=== PATIENT | female | born 1935 | race Caucasian/White ===

== ENCOUNTER 2017-04-26 14:13 | Emergency (ER) | payer MEDICARE, OTHER ==
[~2017-04-26] VITALS: Ht 160 cm; Wt 58.1 kg
[~2017-04-26 14:13] MED LIST: CIPR250T PO; GABA300S PO; LISI-334 PO; METF10002 PO; PRIM50TA PO; SIMV40TA3 PO
[2017-04-26 14:20] VITALS: BP 169/87
--- NOTE | 2017-04-26 15:01 | RAD ---
EXAM: Head and maxillofacial bone CT without contrast. HISTORY: Fall. TECHNIQUE: Computed tomographic images of the head and maxillofacial bones were obtained without contrast. Multiplanar reformatting was performed for further evaluation. COMPARISON: 10/30/2014 FINDINGS: Head: There is no acute or subacute intracranial hemorrhage. There is increased density within the left temporal extra-axial space due to bone artifact. There is a large left frontal and temporal scalp hematoma. There are scattered areas of hypodensity within the cerebral white matter, likely due to chronic small vessel disease. There is cerebral volume loss. No calvarial lesion is seen. There are findings consistent with bilateral mastoidectomies. Maxillofacial bones: There is a large left frontal and temporal scalp hematoma. No underlying fracture is seen. No orbital lesion is seen. There is moderate left posterior ethmoid sinus mucosal thickening. 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 There is rightward nasal septal deviation. The ostiomeatal units are patent. IMPRESSION: 1. Large left frontal and temporal scalp hematoma. There is no acute intracranial finding or evidence of acute maxillofacial bone trauma. 2. Decreased attenuation within the cerebral white matter, likely due to chronic small vessel disease. 3. Cerebral volume loss. 4. Posterior left ethmoid sinus disease. PQRS Compliance Statement: One or more of the following individualized dose reduction techniques were utilized for this examination: 1. Automated exposure control 2. Adjustment of the mA and/or kV according to patient size 3. Use of iterative reconstruction technique exam
--- NOTE | 2017-04-26 15:08 | RAD ---
EXAM: Left elbow, 3 views. HISTORY: Pain. COMPARISON: None. FINDINGS: Frontal, lateral and oblique views of the left elbow were obtained. There is no fracture, dislocation or subluxation. No effusion is seen. IMPRESSION: No acute osseous finding.
--- NOTE | 2017-04-26 15:11 | PHYS DOC ---
General Chief Complaint: HEAD INJURY/TRAUMA Stated Complaint: [facility] FALL Time Seen by MD: 14:40 Source: patient, family Exam Limitations: no limitations Problems: History of Present Illness Initial Comments Pt is 81/F to ED via EMS for fall injury. Pt/family report that pt gait has been increasingly unsteady past few months, uses a walker at home. Immediately prior to arrival pt returned home from grocery shopping with family. While getting out of car she says she caught her foot on a curb and fell hitting left parietal and left elbow/hip on concrete. No LOC, pt was confused for approximately 15 minutes after the fall according to family and was having difficulty finding words so EMS called. Pt mentation cleared on ED arrival, she c/o headache and mild photophobia no n/v no new focal weakness. Full ROM at left elbow, has a few skin avulsions Td status unknown. No anticoagulation, no arrhythmia/syncope symptoms prior to fall, reported as mechanical. Occurred: just prior to arrival Severity: moderate Injuries/Pain Location: face, upper extremity, pelvis Context: tripped Loss of Consciousness: no loss of consciousness Modifying Factors: worse with jarring, worse with movement, improves with rest Associated Symptoms: headache, other Allergies: Coded Allergies: No Known Drug Allergies (Unverified , 06/04/14) Past Medical History Medical History: other (DM, UTI, colon cancer, HTN, HLP) Surgical History: noncontributory Social History Smoker: non-smoker Alcohol: none Drugs: none Review of Systems Constitutional: denies chills, denies fever, malaise Eyes: denies blindness, denies blurred vision, denies drainage, denies foreign body sensation, photophobia Ears, Nose, Mouth, Throat: denies ear discharge, denies nose discharge, denies epistaxis, denies mouth pain, denies throat pain Respiratory: denies cough, denies shortness of breath, denies wheezing Cardiovascular: denies chest pain, denies palpitations, denies syncope Gastrointestinal: denies abdominal pain, denies diarrhea, denies nausea, denies vomiting Genitourinary: denies dysuria, denies frequency, denies hematuria Musculoskeletal: see HPI Skin: see HPI Psychiatric/Neurological: see HPI, denies numbness, denies paresthesia, denies seizure, denies tingling Physical Exam General Appearance: no apparent distress, thin Head: other (Moderate left parietal hematoma noted with superficial abrasion, neg Tate/raccoon eyes no palpable scalp/face bony deformity) Eyes: bilateral eye normal inspection, bilateral eye PERRL, bilateral eye EOMI Ears, Nose, Mouth, Throat: hearing grossly normal, no evidence of ENT injury, no dental injury Neck: non-tender, full range of motion Cardiovascular/Respiratory: normal peripheral pulses, no respiratory distress Gastrointestinal: non tender, soft Back: no CVA tenderness, no vertebral tenderness Extremities: non-tender (diffuse left elbow TTP no deformity, ligs/tendons intact LUE neurovasc intact. 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 PHYSICIAN: ROSA RIVER DO REASON: fall, head injury PROCEDURE: CT HEAD WO CONTRAST; CT MAXILLOFACIAL WO CONTRAST EXAM: Head and maxillofacial bone CT without contrast. HISTORY: Fall. TECHNIQUE: Computed tomographic images of the head and maxillofacial bones were obtained without contrast. Multiplanar reformatting was performed for further evaluation. COMPARISON: 10/30/2014 FINDINGS: Head: There is no acute or subacute intracranial hemorrhage. There is increased density within the left temporal extra-axial space due to bone artifact. There is a large left frontal and temporal scalp hematoma. There are scattered areas of hypodensity within the cerebral white matter, likely due to chronic small vessel disease. There is cerebral volume loss. No calvarial lesion is seen. There are findings consistent with bilateral mastoidectomies. Maxillofacial bones: There is a large left frontal and temporal scalp hematoma. No underlying fracture is seen. No orbital lesion is seen. There is moderate left posterior ethmoid sinus mucosal thickening. 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 There is rightward nasal septal deviation. The ostiomeatal units are patent. IMPRESSION: 1. Large left frontal and temporal scalp hematoma. There is no acute intracranial finding or evidence of acute maxillofacial bone trauma. 2. Decreased attenuation within the cerebral white matter, likely due to chronic small vessel disease. 3. Cerebral volume loss. 4. Posterior left ethmoid sinus disease. PQRS Compliance Statement: One or more of the following individualized dose reduction techniques were utilized for this examination: 1. Automated exposure control 2. Adjustment of the mA and/or kV according to patient size 3. Use of iterative reconstruction technique exam DICTATED AND SIGNED BY: GUIDO QUEEN MD DATE: 04/26/17 1454 CC: ANA MCKENZIE; ROSA RIVER DO ~ PATIENT: NESTOR AMBROCIO ACCOUNT: [id number] : 1935 LOCATION: ER AGE: 81 SEX: F EXAM STATUS: REG ER ORD. PHYSICIAN: ROSA RIVER DO REASON: fall PROCEDURE: ELBOW LEFT 3V EXAM: Left elbow, 3 views. HISTORY: Pain. COMPARISON: None. FINDINGS: Frontal, lateral and oblique views of the left elbow were obtained. There is no fracture, dislocation or subluxation. No effusion is seen. IMPRESSION: No acute osseous finding. DICTATED AND SIGNED BY: GUIDO QUEEN MD DATE: 04/26/17 1506 CC: ANA MCKENZIE; ROSA RIVER DO ~ L Hip/Pelvis: reviewed by me, no acute osseous abnormality Pt ambulatory to bathroom, no new/progressive symptoms thru ED course. Departure Disposition: 01 HOME, SELF-CARE Diagnosis: mechanical fall, concussion, skin avulsion, Condition: STABLE Patient Instructions: Concussion and Brain Injury, [id number], Deep Skin Avulsion, Fall Prevention and Home Safety, [id number] Additional Instructions: Have someone stay with you over the weekend to assist you with walking. Ice to painful areas 15 minutes 4-6 times daily. OTC tylenol for discomfort. Keep left arm wounds covered with sterile dressing until healed. Wash wound twice daily, apply bactroban, and change dressing twice daily. Allow wound to air dry one hour daily. Follow up with your doctor Thursday for recheck. Return to ED with new or changing symptoms. ROSA RIVER DO April 26, 2017 15:11
[2017-04-26] MEDS ORDERED: DIPHTH,PERTUSS(ACELL),TET TOX 0.5 ML DISP.SYRIN. VAX IM ONE (15:45)
--- NOTE | 2017-04-26 16:06 | RAD ---
EXAM: Pelvis and left hip, 3 views. HISTORY: Fall. COMPARISON: None. FINDINGS: A frontal view of the pelvis and frontal and frog-leg views of the left hip are obtained. There is no fracture, dislocation or subluxation. There is endplate remodeling at the lumbosacral junction. There are vascular calcifications. IMPRESSION: No acute osseous finding.
[2017-04-26] MEDS ORDERED: MUPI15CR TP (16:23)
== END 2017-04-26 17:20 | disposition home or self-care (01) ==
LOC: ER 14:59
DX: S06.0X0A Concussion without loss of consciousness, initial encounter (principal); S61.402A Unspecified open wound of left hand, initial encounter; I10 Essential (primary) hypertension; E11.9 Type 2 diabetes mellitus without complications; E78.5 Hyperlipidemia, unspecified; Z87.440 Personal history of urinary (tract) infections; W18.09XA Striking against other object with subsequent fall, initial encounter; Y93.89 Activity, other specified; Y99.8 Other external cause status; Y92.098 Other place in other non-institutional residence as the place of occurrence of the external cause
CPT/HCPCS: 70450; 70486; 73080; 73502; 90471; 90715; 99284-25

== ENCOUNTER 2018-12-24 17:12 | Inpatient (IN) | payer MEDICARE ==
[~2018-12-24] VITALS: Ht 162.6 cm; Wt 62.7 kg
[~2018-12-24 17:12] MED LIST changes: -METF10002 PO; +METF10007 PO; +MUPI15CR TP
[2018-12-24] MEDS ORDERED: IV NORMAL SALINE 1,000ML 1,000 ML IV SCH (17:21)
[2018-12-24 17:40] LABS: BASO # 0.2 x10^3/uL (0.0-0.2); BASO % 2 % (0-3); EOS % 0 % (0-3); HEMATOCRIT 44.6 % (36.0-47.0); LYMPH # 2.2 x10^3/uL (1.0-4.8); LYMPH % 17 % (24-48); MEAN CORPUSCULAR HEMOGLOBIN 30 pg (25-35); MEAN CORPUSCULAR HGB CONC 34 g/dL (31-37); MEAN CORPUSCULAR VOLUME 89 fL (79-100); MONO # 0.6 x10^3/uL (0.0-1.1); MONO % 5 % (0-9); NEUT # 9.8 x10^3uL (1.8-7.7); NEUT % 77 % (31-73); PLATELET COUNT 459 x10^3/uL (140-400); RED BLOOD COUNT 4.99 x10^6/uL (3.50-5.40); RED CELL DISTRIBUTION WIDTH 13.9 % (11.5-14.5); WHITE BLOOD COUNT 12.8 x10^3/uL (4.0-11.0)
--- NOTE | 2018-12-24 17:45 | PHYS DOC ---
Past History Past Medical History: Diabetes, High Cholesterol, Hypertension (MARA MCKEON Jr., DO) Past Surgical History: Hysterectomy, Other (MARA MCKEON Jr., DO) Smoking: Non-smoker Alcohol Use: None Drug Use: None (MARA MCKEON Jr., DO) Adult General Chief Complaint Chief Complaint: MECHANICAL FALL HPI HPI Patient is an 83-year-old female who presents via EMS after reportedly being found by her daughter on the floor. Patient had reportedly fallen at home and had not been able to get up and had forgotten about her life alert bracelet. Patient's daughter had tried to contact her today but was unable to get ahold of her so went by the house to check on her. Patient states that she has been on the floor for 3 days but patient's daughter states that she had spoken with the patient just yesterday afternoon. Patient complains of moderate pain in her head, neck as well as mid and upper back and lower back. Patient does report that she is feeling weak. She denies any chest pain or shortness of breath. She also denies any nausea or vomiting. (MARA MCKEON Jr., DO) Review of Systems Review of Systems Constitutional: Denies fever or chills [] Respiratory: Denies cough or shortness of breath [] Cardiovascular: No additional information not addressed in HPI [] GI: Denies abdominal pain, nausea, vomiting or diarrhea [] Musculoskeletal: Complains of upper, mid and lower back pain [] Neurologic: Complains of headache without focal weakness or sensory changes [] All other systems were reviewed and found to be within normal limits, except as documented in this note. (MARA MCKEON Jr., DO) Current Medications Current Medications Current Medications Medications (Trade) Dose Ordered Sig/Wander Start Time Stop Time Status Last Admin Dose Admin Sodium Chloride 1,000 ml @ 1,000 mls/hr Q1H 12/24/18 17:21 12/24/18 18:20 (MARA MCKEON Jr., DO) Current Medications See Nursing for home meds (CHASIDY LOPEZ MD) Allergies Allergies Allergies Coded Allergies Type Severity Reaction Last Updated Verified No Known Drug Allergies 06/04/14 No (MARA MCKEON Jr., DO) Physical Exam Physical Exam Constitutional: Well developed, well nourished, no acute distress, non-toxic appearance. [] HENT: Normocephalic, atraumatic, bilateral external ears normal, oropharynx dry , no oral exudates, nose normal. [] Eyes: PERRLA, EOMI, conjunctiva normal, no discharge. [] Neck: Normal range of motion, with reported tenderness to palpation in the bilateral cervical strap musculature, supple. [] Cardiovascular: Regular rate and rhythm [] Lungs & Thorax: Bilateral breath sounds clear to auscultation [] Abdomen: Bowel sounds normal, soft, no tenderness. [] Skin: Warm, dry, no erythema, no rash. [] Back: Patient has reported tenderness to palpation around the mid thoracic and lumbar paraspinal musculature. Patient also reports to spinous point tenderness in the upper thoracic region. [] Extremities: No tenderness, no cyanosis, no clubbing, ROM intact. [] Neurologic: Awake and alert with no focal deficits noted. [] (MARA MCKEON Jr. DO) Current Patient Data Vital Signs Vital Signs Date Time Temp Pulse Resp B/P (MAP) Pulse Ox O2 Delivery O2 Flow Rate FiO2 12/24/18 17:23 97.7 73 18 98 Room Air (MARA MCKEON Jr. DO) EKG EKG [] (MARA MCKEON Jr. DO) Radiology/Procedures Radiology/Procedures [] (MARA MCKEON Jr., DO) Course & Med Decision Making Course & Med Decision Making Pertinent Labs and Imaging studies reviewed. (See chart for details) Patient moved to room upon arrival was evaluated by ER medical staff after which an IV was established and blood work drawn. Imaging was obtained of the head, cervical spine as well as thoracic and lumbar spine. At this time, patient 's workup is pending and patient is being signed out to oncoming ER physician, Dr. Lopez, at 6:00 PM. (MARA MCKEON Jr., DO) Course & Med Decision Making See Dr. Mckeon- chart for details. Impression: 1. Falling 2. Leukocytosis 12. 8 3. Dehydration 4. DM 169 5. Mental Status Change- Increased Confusion 6. UTI Pt. admitted Dr. Gilmore for further Tx. and evaluation. (CHASIDY LOPEZ MD) Dragon Disclaimer Dragon Disclaimer This electronic medical record was generated, in whole or in part, using a voice recognition dictation system. (MARA MCKEON Jr. DO) Departure Departure: Referrals: ANA MCKENZIE (PCP) Caro Disclaimer This chart was dictated in whole or in part using Voice Recognition software in a busy, high-work load, and often noisy Emergency Department environment. It may contain unintended and wholly unrecognized errors or omissions. (CHASIDY LOPEZ MD) Discharge Summary Visit Information Final Diagnosis Problems Medical Problems: (1) Falling Status: Acute (CHASIDY LOPEZ MD) Brief Hospital Course Allergies Allergies Coded Allergies Type Severity Reaction Last Updated Verified No Known Drug Allergies 06/04/14 No Vital Signs Vital Signs Date Time Temp Pulse Resp B/P (MAP) Pulse Ox O2 Delivery O2 Flow Rate FiO2 12/24/18 18:32 79 18 166/65 (98) 97 Room Air 12/24/18 17:23 97.7 Lab Results Laboratory Tests Test 12/24/18 17:20 12/24/18 17:55 12/24/18 18:00 White Blood Count 12.8 x10^3/uL (4.0-11.0) Red Blood Count 4.99 x10^6/uL (3.50-5.40) Hemoglobin 15.0 g/dL (12.0-15.5) Hematocrit 44.6 % (36.0-47.0) Mean Corpuscular Volume 89 fL (79-100) Mean Corpuscular Hemoglobin 30 pg (25-35) Mean Corpuscular Hemoglobin Concent 34 g/dL (31-37) Red Cell Distribution Width 13.9 % (11.5-14.5) Platelet Count 459 x10^3/uL (140-400) Neutrophils (%) (Auto) 77 % (31-73) Lymphocytes (%) (Auto) 17 % (24-48) Monocytes (%) (Auto) 5 % (0-9) Eosinophils (%) (Auto) 0 % (0-3) Basophils (%) (Auto) 2 % (0-3) Neutrophils # (Auto) 9.8 x10^3uL (1.8-7.7) Lymphocytes # (Auto) 2.2 x10^3/uL (1.0-4.8) Monocytes # (Auto) 0.6 x10^3/uL (0.0-1.1) Eosinophils # (Auto) 0.0 x10^3/uL (0.0-0.7) Basophils # (Auto) 0.2 x10^3/uL (0.0-0.2) Sodium Level 137 mmol/L (136-145) Potassium Level 3.9 mmol/L (3.5-5.1) Chloride Level 95 mmol/L (98-107) Carbon Dioxide Level 29 mmol/L (21-32) Anion Gap 13 (6-14) Blood Urea Nitrogen 26 mg/dL (7-20) Creatinine 0.9 mg/dL (0.6-1.0) Estimated GFR (Cockcroft-Gault) 59.7 Glucose Level 169 mg/dL (70-99) Calcium Level 9.7 mg/dL (8.5-10.1) Total Bilirubin 0.6 mg/dL (0.2-1.0) Direct Bilirubin 0.1 mg/dL (0.0-0.2) Aspartate Amino Transf (AST/SGOT) 25 U/L (15-37) Alanine Aminotransferase (ALT/SGPT) 20 U/L (14-59) Alkaline Phosphatase 89 U/L (46-116) Creatine Kinase 226 U/L (26-192) Troponin I Quantitative 0.020 ng/mL (0-0.055) Total Protein 8.8 g/dL (6.4-8.2) Albumin 3.4 g/dL (3.4-5.0) Urine Collection Type U cath Urine Color Straw Urine Clarity Clear Urine pH 7.5 Urine Specific [place] 1.020 Urine Protein 100 mg/dl (NEG-TRACE) Urine Glucose (UA) Neg mg/dL (NEG) Urine Ketones (Stick) Neg mg/dL (NEG) Urine Blood Mod (NEG) Urine Nitrite Neg (NEG) Urine Bilirubin Neg (NEG) Urine Urobilinogen Dipstick 0.2 mg/dL (0.2 mg/dL) Urine Leukocyte Esterase Small (NEG) Urine RBC 3-5 /HPF (0-2) Urine WBC 11-20 /HPF (0-4) Urine Squamous Epithelial Cells None /LPF Urine Bacteria Many /HPF (0-FEW) Urine Mucus Slight /LPF CO-Ksl-[id number]-Type Natriuretic Peptide 3177 pg/mL (0-449) Brief Hospital Course Ms. Negrete is a 83 old female who presented with hx falling and mental status changes. Admitted to Dr. Olea for further eval and tx. (CHASIDY LOPEZ MD) Discharge Information Condition at Discharge: Improved Dischare Medications Current Medications Sodium Chloride 1,000 ml @ 1,000 mls/hr Q1H IV Last administered on 12/24/18at 17:50; Start 12/24/18 at 17:21; Stop 12/24/18 at 18:21; Status DC Ondansetron HCl (Zofran) 4 mg PRN Q4HRS PRN IV NAUSEA/VOMITING; Start 12/24/18 at 18:30; Stop 12/25/18 at 18:29 Aspirin (Children'S Aspirin) 81 mg DAILY PO ; Start 12/25/18 at 09:00 Ceftriaxone Sodium 1 gm/ Sodium Chloride 50 ml @ 100 mls/hr 1X STAT IV ; Start 12/24/18 at 18:43; Stop 12/24/18 at 19:12 Ceftriaxone Sodium 1 gm/ Sodium Chloride 50 ml @ 100 mls/hr DAILY IV ; Start at 09:00; Status UNV Active Scripts Active Bactroban (Mupirocin Calcium) 15 Gm Cream..g. 1 Romain TP BID Ciprofloxacin Hcl 250 Mg Tablet 1 Tab PO BID Reported Primidone 50 Mg Tablet 50 Mg PO LAST DOSE; TODAY AM NEXT DOSE; TOMORROW AM Metformin Hcl 1,000 Mg Tablet 1,000 Mg PO BID LAST DOSE; TODAY WITH BREAKFAST NEXT DOSE; TODAY WITH DINNER Gabapentin Oral Solution (Gabapentin) 300 Mg/6 Ml Solution 300 Mg PO BID LAST DOSE; TODAY AM NEXT DOSE; TODAY PM Lisinopril 20 Mg Tablet 20 Mg PO DAILY LAST DOSE; TODAY AM NEXT DOSE; TOMORROW AM Simvastatin 40 Mg Tablet 40 Mg PO HS LAST DOSE; YESTERDAY PM NEXT DOSE; TODAY PM (CHASIDY LOPEZ MD) MARA MCKEON Jr. DO Dec 24, 2018 17:45 CHASIDY LOPEZ MD Dec 24, 2018 18:50
[2018-12-24 17:52] LABS: ALBUMIN 3.4 g/dL (3.4-5.0); CALCIUM 9.7 mg/dL (8.5-10.1); CREATININE 0.9 mg/dL (0.6-1.0); DIRECT BILIRUBIN 0.1 mg/dL (0.0-0.2); GFR 59.7; POTASSIUM 3.9 mmol/L (3.5-5.1); TOTAL BILIRUBIN 0.6 mg/dL (0.2-1.0); TOTAL PROTEIN 8.8 g/dL (6.4-8.2)
--- NOTE | 2018-12-24 18:05 | RAD ---
EXAM: CT Head without IV contrast CLINICAL HISTORY: FALL, HEAD AND NECK PAIN COMPARISON: None. TECHNIQUE: Routine CT of the head without contrast. Soft tissues and bone windows were reviewed. PQRS compliance statement - One or more of the following individualized dose reduction techniques were utilized for this study: 1. Automated exposure control 2. Adjustment of the mA and/or kV according to patient size 3. Use of iterative reconstruction technique FINDINGS: There is no evidence of hemorrhage, mass or extra-axial fluid collection. Nation-white differentiation is maintained with no evidence of edema. There are non-specific foci of hypodensity in the periventricular and subcortical white matter of the cerebral hemispheres. There is no mass effect or shift of the intracranial structures. The ventricles and cerebral sulci are prominent for the patients stated age consistent with generalized cerebral volume loss. The cerebellum and brainstem are unremarkable. The calvarium demonstrates no evidence of fracture or focal lesion. There is normal aeration of the visualized paranasal sinuses and mastoid air cells. The visualized portions of the orbits are normal. No evidence for acute intracranial hemorrhage. IMPRESSION: Normal head CT EXAM: Ct Cervical Spine Without Iv Contrast CLINICAL HISTORY: FALL, HEAD AND NECK PAIN COMPARISON: None available. TECHNIQUE: Helical CT of the cervical spine was performed. Axial, coronal and sagittal reformatted images were also performed. PQRS compliance statement - One or more of the following individualized dose reduction techniques were utilized for this study: 1. Automated exposure control 2. Adjustment of the mA and/or kV according to patient size 3. Use of iterative reconstruction technique FINDINGS: Vertebral body heights are preserved. No evidence of acute fracture. There is severe C3-4 and moderate to severe C5-6 and C6-7 intervertebral disc height loss. Straightening of the normal cervical lordosis with focal reversal 8 at C3-4. No spondylolisthesis. C2-C3: Small central disc protrusion causes mild central canal stenosis without significant neural foraminal narrowing. C3-C4: Prominent posterior disc osteophyte complex with central disc protrusion results in moderate central canal stenosis, moderate left and mild right neural foraminal narrowing. C4-C5: Posterior disc osteophyte complex with uncovertebral hypertrophy and facet degenerative changes left greater than right results in mild central canal stenosis, moderate left and mild right neural foraminal narrowing. C5-C6: Posterior disc osteophyte complex results in mild central canal stenosis, mild left and moderate right neural foraminal narrowing. C6-C7: Posterior disc osteophyte complex results in mild central canal stenosis, with mild bilateral neural foraminal narrowing. C7-T1: No significant central canal stenosis or neural foraminal narrowing. Bilateral thyroid nodules are seen. Visualized lung apices are unremarkable. IMPRESSION: 1. No evidence for acute fracture or subluxation. 2. Multilevel spondylosis as above most prominent at C3-4. 3. Bilateral thyroid nodules are seen. This can be further assessed by thyroid ultrasound. Electronically signed by: Jimenez Palomino MD (12/24/2018 6:00 PM) [facility]
--- NOTE | 2018-12-24 18:08 | RAD ---
PQRS Compliance Statement: One or more of the following individualized dose reduction techniques were utilized for this examination: 1. Automated exposure control 2. Adjustment of the mA and/or kV according to patient size 3. Use of iterative reconstruction technique CT thoracic and lumbar spine without contrast history 18/04/2019 INDICATION: Fall, back pain. COMPARISON: None available TECHNIQUE: Multiple axial CT images of the thoracic and lumbar spine were obtained without intravenous contrast. Coronal and sagittal reformats are provided. FINDINGS: Thoracic spine: Alignment of the thoracic spine is normal. There is a superior plate Schmorl's node involving T2 with minimal height loss of less than 15 percent. This finding is age-indeterminate. Otherwise, vertebral body heights are maintained. There is mild multilevel disc height loss. Posterior elements appear intact. Spinous processes are intact. No significant osseous neuroforaminal or spinal canal stenosis is identified. Few subcentimeter thyroid nodules are present. Moderate calcified atheromatous plaque is identified involving the thoracic aorta. Heart size is borderline enlarged. 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 Visualized portions of the lungs demonstrate mild bronchial wall thickening as may be seen with bronchitis. No suspicious solid noncalcified pulmonary nodule is identified. Presents portions of the liver and bilateral adrenal glands appear normal. Gallbladder is present. Lumbar spine: There is mild superior endplate concavity involving L1 which is age indeterminant. No definite sclerosis is identified along the superior endplate. However, correlation with a site of point tenderness is recommended. There is grade 1 retrolisthesis of L3 on L4. There is moderate disc height loss at L3-L4 without the remodeling and vacuum disc phenomenon. Large anterior marginal osteophyte is identified at L2-L3 with moderate to advanced disc height loss with endplate sclerosis and endplate remodeling. There is mild disc height loss at L4-L5 with minimal retrolisthesis. Visualized portions of the sacrum appear intact. There is mild dextroconvex curvature of the lumbar spine centered at L2-L3. Transverse processes are intact. There is a calculus in the left renal pelvis measuring 17 mm with associated mild left hydronephrosis. There is a right-sided extrarenal pelvis. Nonobstructing calculus is identified in the right kidney measuring 20 mm. Atherosclerotic changes of the abdominal aorta present. There is moderate lumbar spondylosis, most prominent at L2-L3 with a moderate disc bulge with moderate facet arthropathy resulting in moderate left neuroforaminal stenosis and moderate spinal canal stenosis. IMPRESSION: 1. Superior endplate Schmorl's node with minimal height loss is identified at T2, age indeterminate. 2. Mild superior plate concavity involving L1 with less than 25 percent height loss is age indeterminate. Correlation with the site of point tenderness is recommended. There is minimal retropulsion without significant spinal canal stenosis. No paraspinal or epidural hematoma is identified. 3. Moderate degenerative disc disease of the lumbar spine with dextro convex scoliosis and grade 1 retrolisthesis of L3 on L4 and minimal retrolisthesis of L4 on L5. Electronically signed by: Angeline Connolly MD (12/24/2018 6:03 PM) [facility]
--- NOTE | 2018-12-24 18:10 | RAD ---
Chest radiograph 12/24/2018 5:21 PM INDICATION: Fall, chest pain COMPARISON: CT chest August 28, 2016 TECHNIQUE: Supine frontal view of the chest is provided. FINDINGS: The cardiomediastinal silhouette is within normal limits. There are no pleural effusions. There is no pulmonary vascular congestion. There is no pneumothorax. The lungs are clear. No significant osseous abnormality is identified. IMPRESSION: No acute cardiopulmonary process. Electronically signed by: Angeline Connolly MD (12/24/2018 6:06 PM) [facility]
[2018-12-24] MEDS ORDERED: ONDANSETRON PF 4 MG/2 ML VIAL. IV PRN (18:30)
[2018-12-24 18:35] LABS: BACTERIA,URINE MANY /HPF (0-FEW); BILIRUBIN,URINE NEG (NEG); CLARITY,URINE CLEAR; COLOR,URINE STRAW; GLUCOSE,URINE NEG (NEG); NITRITE,URINE NEG (NEG); UROBILINOGEN,URINE 0.2 mg/dL (0.2 mg/dL)
[2018-12-24 19:50] VITALS: BP 166/67
[2018-12-24] MEDS ORDERED: DONE10TA7 PO (20:00)
[2018-12-24] MEDS ORDERED: PROP80CA3 PO (20:00)
[2018-12-24] MEDS: IV NORMAL SALINE 1,000ML 1,000 ML IV SCH (21:01)
[2018-12-24] MEDS: LACTOBACILLUS RHAMNOSUS GG 1 CAPSULE. PO SCH (21:01)
[2018-12-24 23:17] VITALS: BP 168/70
[2018-12-25] MEDS: IV NORMAL SALINE 1,000ML 1,000 ML IV SCH ×2 (02:30→11:51)
[2018-12-25 03:09] VITALS: BP 139/57
[2018-12-25 05:01] VITALS: BP 151/66
--- NOTE | 2018-12-25 06:19 | EKG ---
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
[2018-12-25 06:33] LABS: BASO % 0 % (0-3); EOS # 0.1 x10^3/uL (0.0-0.7); EOS % 1 % (0-3); HEMATOCRIT 35.3 % (36.0-47.0); HEMOGLOBIN 11.9 g/dL (12.0-15.5); LYMPH # 2.5 x10^3/uL (1.0-4.8); LYMPH % 26 % (24-48); MEAN CORPUSCULAR HEMOGLOBIN 30 pg (25-35); MEAN CORPUSCULAR HGB CONC 34 g/dL (31-37); MEAN CORPUSCULAR VOLUME 90 fL (79-100); MONO # 0.7 x10^3/uL (0.0-1.1); MONO % 8 % (0-9); NEUT # 6.3 x10^3uL (1.8-7.7); NEUT % 65 % (31-73); PLATELET COUNT 354 x10^3/uL (140-400); RED BLOOD COUNT 3.94 x10^6/uL (3.50-5.40); WHITE BLOOD COUNT 9.7 x10^3/uL (4.0-11.0)
[2018-12-25 06:38] LABS: CALCIUM 8.6 mg/dL (8.5-10.1); CREATININE 0.8 mg/dL (0.6-1.0); GFR 68.3; POTASSIUM 3.5 mmol/L (3.5-5.1)
[2018-12-25] MEDS: ASPIRIN 81 MG TAB.CHEW PO SCH (08:23)
[2018-12-25] MEDS: LACTOBACILLUS RHAMNOSUS GG 1 CAPSULE. PO SCH ×2 (08:23→21:00)
--- NOTE | 2018-12-25 11:09 | HP ---
ADMIT DATE: 12/25/2018 HISTORY OF PRESENT ILLNESS: The patient is an 83-year-old female found by her daughter on the floor. It may have been out for the last 3 days. The patient does have a low grade cough. She has some significant dementia. The patient complains of moderate pain to her head and neck area. The patient was seen initially in the Emergency Room, worked up there. CT scans were basically unremarkable as far as any evidence of damage to the cranium or cervical spine. Lumbar spine was basically also unremarkable as far as an acute problem going on there. At any case, the patient was admitted to the hospital obviously for further evaluation, otherwise she had this episode as well as possible urinary tract infection and treat her with antibiotic therapy as well. PAST MEDICAL HISTORY: Hearing problems, tremors. She has generalized tremors, on primidone. Alzheimer's disease, headaches, cardiac symptoms, coronary artery disease, hypercholesterolemia, hypertension, kidney stones, musculoskeletal problems, scoliosis, back pain, endocrine disorders, diabetes, hypothyroidism, depression and influenza vaccination up-to-date. FAMILY HISTORY: Colon cancer in the father, otherwise unknown. ALLERGIES: No known allergies. MRAD reviewed, see that in the chart. SOCIAL HISTORY: No smoking, alcohol or drug use. Apparently lives at her home by herself. REVIEW OF SYSTEMS: The patient does notes that she has got some soreness, but denies any chest pain, shortness of breath. Denies abdominal pain. Does not know why she fell. Denies any melena, hematochezia, or hematemesis. Neurologically intact. Baseline for her as noted she has marked Alzheimer's dementia. PHYSICAL EXAMINATION: VITAL SIGNS: Blood pressure 166/65, respiratory rate , pulse 79, afebrile. GENERAL: The patient is a frail-appearing elderly white female looking a little bit older than stated age. HEENT: Otherwise, head was atraumatic, normocephalic. Eyes were basically unremarkable as well as the ears. The eyes showed PERRLA, EOMI. NECK: Normal range of motion. HEART: Regular sinus rhythm. LUNGS: Diminished, 3/4 breath sounds, but clear. CARDIOVASCULAR: Regular sinus rhythm. ABDOMEN: Soft, nontender, no rebound or guarding. Positive bowel sounds, no hepatosplenomegaly. EXTREMITIES: No clubbing, cyanosis. There is soreness in multiple areas, but other than that unremarkable. NEUROLOGIC: She is alert. She does have a very hard of hearing and difficulty in answering questions and will continue to be monitored accordingly. LABORATORY DATA: White count 12.8. Appears to be somewhat dehydrated. Glucose 127. BNP of culture pending on that. Continue on IV fluids, IV antibiotic therapy for now, make further evaluation on her as indicated. IMPRESSION: Loss of consciousness, mild concussion, dehydration, leukocytosis, urinary tract infection, generalized weakness, failure to thrive, dementia, Alzheimer's type. PLAN: Continue on present drug regimen of IV fluids, IV antibiotic therapy, possible consult with the SNF unit. JOSE MOON MD DR: DOROTHY/lisseth JOB#: [id number] / [id number]
[2018-12-25] MEDS: LISINOPRIL 20 MG TABLET PO SCH (11:50)
[2018-12-25] MEDS: PROPRANOLOL ER 80 MG CAP.ER.24H. PO SCH (11:51)
[2018-12-25 12:02] VITALS: BP 116/53
[2018-12-25 16:01] VITALS: BP 111/54
--- NOTE | 2018-12-25 16:38 | RAD ---
Bilateral lower extremity venous Doppler dated 12/25/2018. No comparison available. Clinical data indication: Mental status change recent falls.. FINDINGS: Grayscale, color-flow and spectral waveform analysis performed. There is normal compressibility, phasicity and augmentation of flow throughout the visualized venous systems. The calf veins are not well evaluated. IMPRESSION: Limited exam. No apparent lower extremity deep vein thrombosis. Electronically signed by: Ellis Lomas MD (12/25/2018 4:33 PM) [facility] [place] [facility] [place]
--- NOTE | 2018-12-25 16:41 | RAD ---
Carotid Doppler dated 12/25/2018. No comparison available. Clinical data indication: Mental status change. FINDINGS: Grayscale, color-flow and spectral waveform analysis was performed. There is moderate plaque at both carotid systems. No focal stenosis. Waveforms are within normal limits. There is antegrade flow of the right vertebral. The left vertebral artery is not well visualized. Velocity measurements are as follows (centimeters per second ) Peak systolic velocity right left ICA 128 76 CCA 81 84 ECA 328 160 ICA/CCA ratio 1.58 0.90 Impression: 1. No evidence of hemodynamically significant ICA stenosis. 2. 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 3. Nonvisualization of the left vertebral artery which could be occluded. If indicated, CTA would better evaluate. Stenosis calculations for carotid ultrasound studies are derived from validated velocity criteria which are known to correlate with the NASCET methodology. Electronically signed by: Ellis Lomas MD (12/25/2018 4:36 PM) [facility] [place]
[2018-12-25] MEDS: metFORMIN 500 MG TABLET PO SCH (17:03)
[2018-12-25 20:43] VITALS: BP 145/75
[2018-12-25] MEDS: SIMVASTATIN 40 MG TABLET. PO SCH (21:00)
[2018-12-25] MEDS: DONEPEZIL HCL 10 MG TABLET PO SCH (21:00)
[2018-12-26 00:36] VITALS: BP 151/54
[2018-12-26 05:12] VITALS: BP 139/52
[2018-12-26] MEDS: ASPIRIN 81 MG TAB.CHEW PO SCH (08:32)
[2018-12-26] MEDS: LISINOPRIL 20 MG TABLET PO SCH (08:33)
[2018-12-26] MEDS: LACTOBACILLUS RHAMNOSUS GG 1 CAPSULE. PO SCH ×2 (08:33→20:59)
[2018-12-26] MEDS: metFORMIN 500 MG TABLET PO SCH ×2 (08:33→17:01)
[2018-12-26] MEDS: PROPRANOLOL ER 80 MG CAP.ER.24H. PO SCH (08:34)
[2018-12-26 10:00] VITALS: BP 134/53
[2018-12-26] MEDS: IV NORMAL SALINE 1,000ML 1,000 ML IV SCH ×2 (11:44→23:02)
[2018-12-26 15:25] VITALS: BP 162/65
[2018-12-26 19:09] VITALS: BP 153/68
[2018-12-26] MEDS: DONEPEZIL HCL 10 MG TABLET PO SCH (20:58)
[2018-12-26] MEDS: SIMVASTATIN 40 MG TABLET. PO SCH (20:59)
--- NOTE | 2018-12-26 22:26 | PN ---
DATE: SUBJECTIVE: An 83-year-old female came in, who apparently had been falling at her home. Apparently, she lives there by herself. Has good family support. She was noted to have a mild concussion. The patient has marked tremor and takes Inderal for that, although tremor seems probably be a little bit worse than usual. The patient's urine showed bladder infection. She is on IV Rocephin. Blood sugars are under better control. OBJECTIVE: VITAL SIGNS: Blood pressure 130/50, respiratory rate 20, pulse 70, afebrile. HEENT: The patient's head was atraumatic, normocephalic. Eyes: PERRLA without jaundice. Mouth and throat were normal. NECK: Supple, without JVD or thyromegaly. LUNGS: Diminished throughout, poor movement of air. CARDIOVASCULAR: Regular sinus rhythm. ABDOMEN: Soft. NEUROLOGIC: The patient has a resting tremor. Neurologically intact, baseline for her; some hard of hearing, some mild dementia. IMPRESSION: Concussion secondary to fall at home, urinary tract infection, mild concussion, loss of consciousness, dehydration, leukocytosis, generalized weakness, failure to thrive, mild dementia. JOSE MOON MD DR: DOROTHY/lisseth JOB#: [id number] / [id number]
[2018-12-26 23:15] VITALS: BP 166/75
[2018-12-27 06:22] VITALS: BP 175/64
[2018-12-27] MEDS: metFORMIN 500 MG TABLET PO SCH ×2 (08:18→17:03)
[2018-12-27] MEDS: LACTOBACILLUS RHAMNOSUS GG 1 CAPSULE. PO SCH ×2 (08:18→20:41)
[2018-12-27] MEDS: ASPIRIN 81 MG TAB.CHEW PO SCH (08:18)
[2018-12-27] MEDS: PROPRANOLOL ER 80 MG CAP.ER.24H. PO SCH (08:19)
[2018-12-27] MEDS: LISINOPRIL 20 MG TABLET PO SCH (08:19)
[2018-12-27 10:50] VITALS: BP 165/69
[2018-12-27] MEDS: IV NORMAL SALINE 1,000ML 1,000 ML IV SCH (13:06)
[2018-12-27 15:13] VITALS: BP 146/57
[2018-12-27 19:32] VITALS: BP 171/61
[2018-12-27] MEDS: SIMVASTATIN 40 MG TABLET. PO SCH (20:40)
[2018-12-27] MEDS: DONEPEZIL HCL 10 MG TABLET PO SCH (20:40)
[2018-12-27 23:31] VITALS: BP 165/77
[2018-12-28] MEDS: IV NORMAL SALINE 1,000ML 1,000 ML IV SCH ×2 (03:08→17:50)
[2018-12-28 05:41] VITALS: BP 175/65
[2018-12-28] MEDS: LACTOBACILLUS RHAMNOSUS GG 1 CAPSULE. PO SCH ×2 (08:02→21:38)
[2018-12-28] MEDS: metFORMIN 500 MG TABLET PO SCH ×2 (08:03→16:54)
[2018-12-28] MEDS: LISINOPRIL 20 MG TABLET PO SCH (08:03)
[2018-12-28] MEDS: ASPIRIN 81 MG TAB.CHEW PO SCH (08:03)
[2018-12-28] MEDS: PROPRANOLOL ER 80 MG CAP.ER.24H. PO SCH (08:26)
[2018-12-28 10:58] VITALS: BP 176/56
[2018-12-28] MEDS ORDERED: CEFD300C PO (14:40)
[2018-12-28 15:07] VITALS: BP 168/60
[2018-12-28 19:30] VITALS: BP 170/62
--- NOTE | 2018-12-28 21:03 | DS ---
DATE OF DISCHARGE: 12/28/2018 HOSPITAL COURSE: The patient is an 83-year-old female patient who apparently lives alone. She was found by her daughter on the floor. She might have been out there for the last 3 days. The patient does have a low grade cough. She has significant dementia. She complained of moderate pain in her head and neck. She was investigated in the Emergency Room and CT scan was basically unremarkable as far as any evidence of damage to the cranium or cervical spine; lumbar spine was also unremarkable. She was admitted for further evaluation and she was found also to have a urinary tract infection. She was continued on IV fluid and IV ceftriaxone and did well. Her urine culture has grown more than 100,000 colony forming units per mL of Escherichia coli sensitive to ceftriaxone and that was switched to oral cefdinir and as she remained afebrile, hemodynamically stable, a decision was made to transfer her to [facility] to continue the process of rehabilitation there. Continue the oral antibiotics. PHYSICAL EXAMINATION: GENERAL: When I examined her today, she looked well and was clearly in no apparent respiratory distress, pale, cachectic. No jaundice, cyanosis, or thyromegaly. No jugular venous distension. No limb edema. VITAL SIGNS: Her heart rate was 61, blood pressure was 176/56, temperature was 97.7, respiratory rate 20, and oxygen saturation was 98% on room air. HEAD, EYES, EARS, NOSE AND THROAT: Showed normocephalic, atraumatic. NECK: Supple. HEART: Showed normal first and second heart sounds. No gallop, rub or murmur. CHEST: Clear to auscultation. No crepitation or rhonchi. ABDOMEN: Distended, soft, nontender. No guarding or rigidity. No organomegaly. All hernial orifices intact. Bowel sounds normal. NEUROLOGIC: She was demented, but without any obvious lateralizing signs. She has prominent ____. She walks with a walker with standby assist. Her intake over the last 24 hours was 3180, no output was recorded. LABORATORY DATA: Her lab work this morning showed white cell count down to 9700, hemoglobin 11, hematocrit 35, MCV 90 and platelet count 354,000. Her chemistry showed that her serum sodium was 139, potassium 3.5, chloride 102, bicarbonate 29, anion gap of 8, BUN 24, creatinine 0.8, estimated GFR was 68 mL per minute. Her glucose was 127, calcium was 8.6. DISCHARGE MEDICATIONS: She was discharged to [facility] to continue on cefdinir 300 mg twice a day for 4 more days, Aricept 10 mg once a day, lisinopril 20 mg once a day, metformin 1000 mg twice a day and Inderal 80 mg daily. FINAL DISCHARGE DIAGNOSES: 1. Recurrent falls. 2. Urinary tract infection. 3. 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 MELLY REYES MD DR: CHRIS/nts JOB#: [id number] / [id number]
[2018-12-28] MEDS: DONEPEZIL HCL 10 MG TABLET PO SCH (21:38)
[2018-12-28] MEDS: SIMVASTATIN 40 MG TABLET. PO SCH (21:38)
[2018-12-28] MEDS: CEFDINIR 300 MG CAPSULE PO SCH (21:39)
[2018-12-28 22:19] VITALS: BP 168/72
[2018-12-29 05:09] VITALS: BP 178/71
[2018-12-29] MEDS: IV NORMAL SALINE 1,000ML 1,000 ML IV SCH (07:10)
[2018-12-29] MEDS: metFORMIN 500 MG TABLET PO SCH (07:54)
[2018-12-29] MEDS: LACTOBACILLUS RHAMNOSUS GG 1 CAPSULE. PO SCH (07:54)
[2018-12-29] MEDS: CEFDINIR 300 MG CAPSULE PO SCH (07:54)
[2018-12-29] MEDS: LISINOPRIL 20 MG TABLET PO SCH (07:54)
[2018-12-29] MEDS: ASPIRIN 81 MG TAB.CHEW PO SCH (07:54)
[2018-12-29] MEDS: PROPRANOLOL ER 80 MG CAP.ER.24H. PO SCH (07:55)
[2018-12-29 10:40] VITALS: BP 173/72
[2018-12-29 14:30] VITALS: BP 149/66
== END 2018-12-29 16:00 | DRG 89 ==
LOC: ER 17:12 → 1 SOUTH 18:00
PROVIDERS: ADMIT Family Medicine; ATTEND Internal Medicine
DX: S06.0X9A Concussion with loss of consciousness of unspecified duration, initial encounter (principal); N39.0 Urinary tract infection, site not specified; E86.0 Dehydration; H90.5 Unspecified sensorineural hearing loss; M41.9 Scoliosis, unspecified; F02.80 Dementia in other diseases classified elsewhere, unspecified severity, without behavioral disturbance, psychotic disturbance, mood disturbance, and anxiety; G30.9 Alzheimer's disease, unspecified; E11.9 Type 2 diabetes mellitus without complications; E78.00 Pure hypercholesterolemia, unspecified; I10 Essential (primary) hypertension; I25.10 Atherosclerotic heart disease of native coronary artery without angina pectoris; E03.9 Hypothyroidism, unspecified; F32.9 Major depressive disorder, single episode, unspecified; G89.29 Other chronic pain; R62.7 Adult failure to thrive; W18.39XA Other fall on same level, initial encounter; B96.20 Unspecified Escherichia coli [E. coli] as the cause of diseases classified elsewhere; G25.0 Essential tremor; Z90.710 Acquired absence of both cervix and uterus; Z87.442 Personal history of urinary calculi; Z80.0 Family history of malignant neoplasm of digestive organs; Z68.23 Body mass index [BMI] 23.0-23.9, adult; Y93.89 Activity, other specified; Y92.89 Other specified places as the place of occurrence of the external cause; Y99.8 Other external cause status
CPT/HCPCS: 36415; 70450; 71045; 72125; 72128; 72131; 80048; 80076; 81001; 82550; 82947; 83880; 84484; 85025; 85610; 85730; 87086; 87186; 93005; 93880; 93970; 96360; J0696; 97110; 97530; 97535; 99285-25; J7030